=== PATIENT | male | born 1955 | race Caucasian/White ===

== ENCOUNTER 2019-08-02 13:31 | Observation (INO) | payer OTHER, SELFPAY ==
[2019-08-02] VITALS (13 sets, daily range): BP systolic 117–151; BP diastolic 58–85; PULSE 77–90; RESP 4–24; TEMP 36.7–37.1; O2SAT 90–98
--- NOTE | 2019-08-02 | DI.RAD_ITS ---
EXAM: XR PORTABLE CHEST AP INDICATION: aspiration. COMPARISON: No exams were available for comparison TECHNIQUE: 2D digital imaging was performed. FINDINGS: The heart size is within normal limits. Leads overlie the chest. The lungs appear clear. No infilt rate, effusion pulmonary edema is seen. There is no evidence of pneumothorax. IMPRESSION: No acute abnormality. DATA REPOSITORY: RADIATION DOSE DELIVERED:
[2019-08-02 11:56] LABS: *AMPHETAMINES SCREEN URINE Negative (Negative); *BARBITURATES SCREEN URINE Negative (Negative); *BENZODIAZEPINES SCREEN URINE Negative (Negative); Cannabinoids THC POSITIVE (Negative); Cocaine Screen,Urine Negative (Negative); METHADONE URINE SCREEN Negative (Negative); OPIATES URINE SCREEN Negative (Negative)
[2019-08-02 11:58] LABS: Tricyclic Antidepressants POSITIVE (Negative)
[2019-08-02] MEDS: Lactated Ringers 1,000 ML 80 ML IV (12:22)
--- NOTE | 2019-08-02 12:38 | BOWEL_PTH ---
PATIENT: Ventura Sellers LOC: U#:[id number] AGE/SX: 64/M ROOM: 206 RE08/02/[address]: Mary Alice Wadsworth : 1955 BED: A DIS: 08/03/2019 SPEC #: [id number] RECD: 08/02/19 16:50 STATUS: ADAMARIS REQ #: [id number] KATI: 08/02/19 12:[address]: Mary Alice Wadsworth DEPT: Surgical Specimen RECD BY: Christina Muniz ENTERED: 08/02/19 16:51 SP TYPE: Bowel OTHR DR: Sandra Red Tissues: 1 - BIOPSY BOWEL Procedures: GROSS AND MICRO LEVEL 4 Comments: [id number]
[2019-08-02] MEDS: CLINDAMYCIN 600 MG/50 ML BAG 100 MG IVPB ×2 (13:17→20:39)
[2019-08-02] MEDS: Albuterol/Ipratropium 3 ML UPD VIAL UPD ×2 (13:20→14:10)
--- NOTE | 2019-08-02 13:46 | W.COLOREPORT ---
Date of service: 08/02/19 Time of Service: 13:46 Colonoscopy Report Date of procedure: 08/02/19 Pre-op diagnosis general: colon cancer Post-op diagnosis procedure note: other Procedure: ce and polypectomy Surgeon: Mary Alice Wadsworth Anesthesia proc note operative: GETA Pathology: other Complications: Other (laryngospasm ) Disposition: PACU Prep: Miralax/Dulcolax Procedure Description: After informed consent was obtained the patient was taken to the procedure room and placed in a left decubitous position. Monitors were applied and a time out was done. The patients name, date of , procedure, allergies to medications and metal in their body was reviewed. The patient was then sedated. Once sedated and comfortable a rectal exam was done. External exam was normal. Internal exam revealed a normal sphincter tone and no palpable masses. The prostate not palpable. The scope was then introduced and retroflexed. No internal hemorrhoids were identified. The scope was then advanced to the anastomosis w/out difficulty. He has had an extended R-Sandeep. the anastomosis is widely patent and no signs of recurrent tumor. The prep was adequate. There are x2 small polyps. x1 at the anastomosis and one at 60cm/transverse. These were removed w/ a cold biter. The scope was then slowly retracted over 10 minutes back into the rectum. Polyps were removed at the anastomosis, and 60cm/transverse. No diverticular DX. There were x2 polyps at 20cm. Unfortunately, at this point the pt went into severe laryngospasm. The procedure was abandoned for pt safety, and pt was resuscitated. He was briefly intubated for airway control. The patient tolerated the procedure well and there were no immediate complications. Follow up: The patient should follow up in 1 years, b/c there were polyps left behind, unless they develop changes in bowel habits or other new gastrointestinal complaints. Next time we will plane on doing the procedure w/ elective intubation for better airway control.
--- NOTE | 2019-08-02 13:48 | PGE_ITS ---
Date of Service Date of service: 08/02/19 Time of Service: 13:48 Assessment and Plan Assessment and plan (1) Laryngospasm: Status: Acute (2) History of back surgery: Status: Acute (3) Chronic pancreatitis: Status: Acute Subjective Subjective Interval history since last seen: pt was here today for CE. He had CRC in 2000 and R avila. His last CE 2 yrs ago was incomplete. During the procedure today he had a severe episode of layrngospasm. PT does sm varinder 1 ppd. He also vapes/daps Hash/shatter. 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 He does have a hx of opiate abuse, but has been clean from this. He has had previous back sx and testicular Ca as well. During the procedure he had an episode of layrngospasm. Please see [employer] [facility] notes from complete timeline. Pt was intubated briefly for airway control. He r esolved spontaneously after 1-2 mins. Sats did not go lower than 60%'s. He did not lose a pulse. I am concerned that he did aspirate during the procedure. He had a CXR in PCR that was normal. He was given a dose of clinda in PACU. He jeremy not receive steriods. He did receive x2 Neubs. Pt will be kept until at least 5pm. I would like him to spend the night b/c of concern for resp problems. Objective Objective Clinical Data: Abnormal lab results 08/02/19 Range/Units 11:20 Ur Tricyclics Screen Positive A (Negative) Ur THC Screen Positive A (Negative) Vital Signs Temperature 36.8 C 08/02/19 13:23 Pulse 84 08/02/19 13:23 Pulse Rhythm Regular 08/02/19 11:16 Respiratory Rate 18 08/02/19 13:23 Respiratory Depth Deep 08/02/19 11:16 Blood Pressure 129/85 08/02/19 13:23 Pulse Oximetry 93 L 08/02/19 13:23 Respiratory End-tidal CO2 24 08/02/19 13:23 Oxygen Delivery Method Nasal Cannula 08/02/19 13:23 Oxygen Flow Rate 2 08/02/19 13:23 Pain Level 0 08/02/19 13:23 Intake & Output 08/01/19 08/02/19 08/02/19 23:59 11:59 23:59 Weight 79.7 kg Laboratory Results Urine Opiates Screen Negative (Negative) 08/02/19 11:20 Urine Methadone Screen Negative (Negative) 08/02/19 11:20 Ur Barbiturates Screen Negative (Negative) 08/02/19 11:20 Ur Tricyclics Screen Positive (Negative) A 08/02/19 11:20 Ur Amphetamines Screen Negative (Negative) 08/02/19 11:20 U Benzodiazepines Scrn Negative (Negative) 08/02/19 11:20 Urine Cocaine Screen Negative (Negative) 08/02/19 11:20 Ur THC Screen Positive (Negative) A 08/02/19 11:20
--- NOTE | 2019-08-02 15:53 | W.PM.PROGNOT ---
Date of Service Date of service: 08/02/19 Time of Service: 15:53 Assessment and Plan Assessment and plan (1) Low back pain: Status: Acute (2) History of colon cancer: Status: Acute (3) Laryngospasm: Status: Acute Assessment and plan: inc spirom pulm toilet/neubs clinda repeat CXR in am d/w pt findings at CE. Unfortunately, pt is going to need a repeat CE, b/c there are still polyps in his rectum. IN given his hx of CRC, benefits outway risks. However, we should plan on doing it w/ elective intubation for airway control. (4) Adenomatous colon polyp: Status: Acute (5) Smoker unmotivated to quit: Status: Acute (6) COPD (chronic obstructive pulmonary disease): Status: Chronic (7) Chronic diarrhea: Status: Acute (8) S/P right hemicolectomy: Status: Acute Subjective Subjective Interval history since last seen: pt is awake and alert. d/w findings during the CE and his largngospasm. He has not had problems w/ anethesia in the past. He is a 1PPD smoker and daps daily. 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 Currently he has no SOB. He is coughing up clear sputum. no blood. His sats are in 96-97. BP/HR are stable. He is not running a temp. His lungs are CTA b/l. Exam Chest Chest: normal inspection of the chest Resp Effort & Inspection: able to speak in complete sentences Other: diffuse exp wheeze in all [place]. Cardio Rate: regular rate Rhythm: regular rhythm GI Other: no distention. no pain. incision- well healed and no hernias. Skin Other: intact. Neuro General: alert, awake, oriented x3, moves all extremities, normal light touch, pain and propioception, no focal motor deficits and CN's II-XI intact bilaterally Objective Objective Clinical Data: Abnormal lab results 08/02/19 Range/Units 11:20 Ur Tricyclics Screen Positive A (Negative) Ur THC Screen Positive A (Negative) Vital Signs Temperature 37.0 C 08/02/19 14:10 Pulse 80 08/02/19 14:10 Pulse Rhythm Regular 08/02/19 11:16 Respiratory Rate 18 08/02/19 14:10 Respiratory Depth Deep 08/02/19 11:16 Blood Pressure 125/58 L 08/02/19 14:10 Pulse Oximetry 97 08/02/19 14:10 Respiratory End-tidal CO2 08/02/19 14:10 Oxygen Delivery Method Aerosol Mask 08/02/19 14:10 Oxygen Flow Rate 08/02/19 14:10 Pain Level 0 08/02/19 14:10 Intake & Output 08/01/19 08/02/19 08/02/19 23:59 11:59 23:59 Intake Total 600 / 600 Balance 600 / 600 Weight 79.7 kg Intake: IV 600 / 600 Laboratory Results Urine Opiates Screen Negative (Negative) 08/02/19 11:20 Urine Methadone Screen Negative (Negative) 08/02/19 11:20 Ur Barbiturates Screen Negative (Negative) 08/02/19 11:20 Ur Tricyclics Screen Positive (Negative) A 08/02/19 11:20 Ur Amphetamines Screen Negative (Negative) 08/02/19 11:20 U Benzodiazepines Scrn Negative (Negative) 08/02/19 11:20 Urine Cocaine Screen Negative (Negative) 08/02/19 11:20 Ur THC Screen Positive (Negative) A 08/02/19 11:20
[2019-08-02] MEDS: Albuterol 2.5 MG/3 ML INH SOLN VIAL UPD ×5 (15:55→23:58)
[2019-08-02] MEDS: LORazepam 0.5 MG TAB PO ×2 (18:58→22:14)
[2019-08-02] MEDS: Hydroxychloroquine 200 MG TAB PO (20:39)
[2019-08-02] MEDS: Normal Saline Flush 10 ML SYR IVP (20:39)
[2019-08-02] MEDS: Pregabalin 50 MG CAP 150 MG PO (20:39)
[2019-08-02] MEDS: Cyclobenzaprine 10 MG TAB PO (20:39)
[2019-08-02] MEDS: traZODone 100 MG TAB 300 MG PO (22:14)
[2019-08-03] VITALS (7 sets, daily range): BP systolic 126; BP diastolic 72; PULSE 78–91; RESP 1–20; TEMP 36.5; O2SAT 96–99
--- NOTE | 2019-08-03 | DI.RAD_ITS ---
EXAM: XR CHEST 2V PA LATERAL INDICATION: poss aspiraiton. COMPARISON: XR PORTABLE CHEST AP from 08/02/2019 TECHNIQUE: 2D digital imaging was performed. FINDINGS: The heart size is within normal limits. The lungs show mild underlying fibrotic changes. No infiltr ate, effusion or pulmonary edema is seen. There is deformity of the distal clavicle and acromion rel ated to old fractures. Metallic densities are again seen in the left posterior upper chest. IMPRESSION: No acute abnormality. DATA REPOSITORY: RADIATION DOSE DELIVERED:
[2019-08-03] MEDS: Normal Saline Flush 10 ML SYR IVP ×2 (02:50→08:01)
[2019-08-03] MEDS: CLINDAMYCIN 600 MG/50 ML BAG 100 MG IVPB ×2 (02:51→08:03)
[2019-08-03] MEDS: Albuterol 2.5 MG/3 ML INH SOLN VIAL UPD ×3 (02:56→07:49)
[2019-08-03 06:59] LABS: Abs Immature Grans 0.01 k/cumm (0.0-0.09); Absolute Basophil Count 0.02 k/cumm (0.0-0.2); Absolute Eosinophil Count 0.08 k/cumm (0.0-0.7); Absolute Lymphocyte Count 1.01 k/cumm (1.2-3.4); Absolute Monocyte Count 0.69 k/cumm (0.11-0.7); Absolute Neutrophil Count 6.06 k/cumm (1.2-6.7); Basophils % 0.3; HCT 34.3 % (40.0-50.0); HGB 10.9 g/dL (13.5-17.5); Immature Grans % 0.1 %; Lymphocytes % 12.8; Mean Corp. HGB Concentration 31.8 g/dL (32.0-36.0); Mean Corpuscular Hemoglobin 29.9 pg (27.0-33.0); Mean Corpuscular Volume 94.2 fL (80-95); Mean Platelet Volume 10.8 fL (8.0-11.0); Monocytes % 8.8; Platelet Count 229 x1000/uL (130-400); RBC 3.64 m/cumm (4.50-6.00); RBC Distribution Width 15.4 % (11.8-14.1); White Blood Cell Count 7.87 k/cumm (4.4-10.8)
[2019-08-03 07:14] LABS: ALT 14 U/L (16-63); AST 14 U/L (15-37); Alkaline Phosphatase 59 U/L (46-116); Anion Gap 8.1 mmol/L (3-11); BUN 15 mg/dL (7-18); Bilirubin, Total 0.2 mg/dL (0.2-1.0); CO2 22.9 mmol/L (21.0-32.0); CREATININE 1.11 mg/dL (0.70-1.30); Calcium 7.7 mg/dL (8.5-10.1); Chloride 111 mmol/L (98-107); Glucose 122 mg/dL (74-106); Sodium 142 mmol/L (136-145); Total Protein 5.6 g/dL (6.4-8.2)
[2019-08-03] MEDS: DULoxetine 30 MG CAP PO (08:00)
[2019-08-03] MEDS: Hydroxychloroquine 200 MG TAB PO (08:00)
[2019-08-03] MEDS: Cyclobenzaprine 10 MG TAB PO (08:00)
[2019-08-03] MEDS: Pregabalin 50 MG CAP 150 MG PO (08:00)
[2019-08-03] MEDS: LORazepam 0.5 MG TAB PO (10:11)
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
--- NOTE | 2019-08-03 16:58 | PDOC.CMDIS ---
- If Service Date Differs Date of service: 08/03/19 Time of Service: 16:58 LACE Index Scoring Tool - Questions: Length of Stay (in days): 1 Acuity (Admit via E.D.?): No Comorbidities: Chronic Pulmonary Disease, Any Tumor E.D. Visits: 0 - Answers: Total Score: 6 Risk of Readmission: Low Risk Care Management Discharge Reason for Hospitalization: laryngospasm Discharge Plan: [place] will be discharged home with no services. He will follow up with his PCP and surgeon. He will transport via privae vehicle with a friend Patient/Family Education Needs: Discharge and follow up plans, limitations
== END 2019-08-03 12:45 | disposition home or self-care (01) ==
LOC: MS 14:23
PROVIDERS: Admitting Provider Surgery; PCP Internal Medicine; Visit Provider Surgery
PROC: 0DJD8ZZ Inspection of Lower Intestinal Tract, Via Natural or Artificial Opening Endoscopic (ICD-10-PCS; CPT 45378; principal; 2019-08-02 11:30)
DX: Z03.89 Encounter for observation for other suspected diseases and conditions ruled out (principal); Z53.09 Procedure and treatment not carried out because of other contraindication; J95.88 Other intraoperative complications of respiratory system, not elsewhere classified; J38.5 Laryngeal spasm; R09.02 Hypoxemia; Z12.11 Encounter for screening for malignant neoplasm of colon; Z86.010 Personal history of colon polyps; Z98.890 Other specified postprocedural states; Z85.038 Personal history of other malignant neoplasm of large intestine; K52.9 Noninfective gastroenteritis and colitis, unspecified; J44.9 Chronic obstructive pulmonary disease, unspecified; F17.210 Nicotine dependence, cigarettes, uncomplicated; F17.290 Nicotine dependence, other tobacco product, uncomplicated; Z77.120 Contact with and (suspected) exposure to mold (toxic); Z90.49 Acquired absence of other specified parts of digestive tract; G89.29 Other chronic pain; F12.10 Cannabis abuse, uncomplicated; I10 Essential (primary) hypertension; F11.21 Opioid dependence, in remission; M06.9 Rheumatoid arthritis, unspecified; Z23 Encounter for immunization
CPT/HCPCS: 45380; 36415; 80053; 80307; 88305; NC; 71045; 71046; 85025; 94640; G0378; J2001; J2250; J2704; J3010; J7613; J7620

== ENCOUNTER 2022-05-14 01:48 | Outpatient (CLI) | payer OTHER, SELFPAY ==
[2022-05-14] MEDS: Albuterol HFA 18 GM 200 PUFF INH IH (14:22)
[2022-05-14] MEDS: Inhaler, Assist Device 1 EACH MC (14:23)
--- NOTE | 2022-05-19 12:33 | W.PFT ---
Date of service: 05/14/22 Time of Service: 12:57 Pulmonary Function Test Result Requesting Provider Christos Zhang Indications: COPD Interpretation Spirometry: There is mild airflow limitation. There is no significant bronchodilator response. Muscle pressures are normal. Lung Volumes: There is air trapping. Diffusion Capacity: Normal diffusion Airway Pressure: Normal airway resistance. Impression There is mild airflow limitation with airtrapping and a normal diffusion. This may represent chronic bronchitis (COPD) in the correct clinical context. Clinical Correlation therefore is recommended.
== END 2022-05-14 01:49 | disposition home or self-care (01) ==
LOC: RT 01:49
PROVIDERS: PCP Internal Medicine; Visit Provider Internal Medicine Pulmonary Disease
DX: R06.09 Other forms of dyspnea (principal); J44.9 Chronic obstructive pulmonary disease, unspecified; J98.8 Other specified respiratory disorders
CPT/HCPCS: 94060; 94726; 94729

== ENCOUNTER 2023-03-19 15:13 | Emergency (ER) | payer OTHER, SELFPAY ==
[2023-03-19] VITALS (108 sets, daily range): BP systolic 56–156; BP diastolic 22–74; PULSE 57–109; RESP 10–30; TEMP 37.3; O2SAT 81–97
--- NOTE | 2023-03-19 15:15 | RT.EKG_ITS ---
APPROVED REPORT Exam: Resting ECG Reason for Exam: chest pressure Patient Location: E HR:100 bpm ECG Measurements Heart Rate 100 AXIS MI 209 P 1 QRSd 125 QRS 2 QT 366 T 145 QTc 474 Conclusion Sinus tachycardia...rate> 99 Borderline prolonged MI interval...MI >207, V-rate 91-120 Probable LVH with secondary repol abnrm...multiple LVH criteria Inferior infarct, old...Q >35mS, II III aVF
[2023-03-19] MEDS: LORazepam 2 MG/ML VIAL (15:40)
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
[2023-03-19 15:41] LABS: Source Nasal/Nares
[2023-03-19 15:49] LABS: Lactate 0.8 mmol/L (0.6-1.4)
[2023-03-19] MEDS: Normal Saline 500 ML IV ×2 (15:51→16:20)
[2023-03-19 15:52] LABS: Abs Immature Grans 0.06 10^3/uL (0.0-0.06); Absolute Basophil Count 0.05 10^3/uL (0.0-0.2); Absolute Lymphocyte Count 1.31 10^3/uL (1.2-3.4); Basophils % 0.3; Eosinophils % 1.4; HCT 31.8 % (40.0-50.0); HGB 10.4 g/dL (13.5-17.5); Immature Grans % 0.4; Lymphocytes % 8.5; MCH 29.4 pg (27.0-33.0); MCHC 32.7 % (32.0-36.0); MCV 90 fL (80-95); Monocytes % 9.1; Neutrophils % 80.3; Platelet Count 228 10^3/uL (130-400); RBC 3.54 10^6/uL (4.36-5.78); RDW-SD 59.4 fL; WBC 15.41 10^3/uL (4.4-10.8)
[2023-03-19 15:54] LABS: Absolute Eosinophil Count 0.22 10^3/uL (0.0-0.7); Absolute Neutrophil Count 12.37 10^3/uL (1.2-6.7)
[2023-03-19 16:07] LABS: INR 1.3 (0.9-1.1); PTT Activated 27.9 sec (23.6-32.8); Prothrombin Time 12.5 sec (9.1-11.1)
--- NOTE | 2023-03-19 16:15 | DI.CT_ITS ---
Exam(s) CT CHEST/ABD/PEL WO EXAM: CT CHEST/ABD/PEL WO CLINICAL HISTORY: hypotension, ?pneumonia, ?renal obstruction. TECHNIQUE: Imaging Protocol: Axial computed tomography images with coronal and sagittal reformatted images were created and reviewed CONTRAST MATERIAL: Intravenous: Omnipaque 350 Contrast volume:100 ml Oral: no COMPARISON: CR XR CHEST 2V PA LATERAL from 08/03/2019 FINDINGS: CHEST: Tracheobronchial tree: Patent where visualized. Pulmonary parenchyma: Mass right lung apex is somewhat low density. No air-fluid level. Measures ro ughly 4.5 x 3 x 2.5 cm. Spiculated appearance. Suspicious for carcinoma. Pleura: No effusion or pneumothorax. Lymph nodes: Mildly enlarged right paratracheal, pre and subcarinal lymph nodes. Calcification right hilum. Aorta: Thoracic portion non-dilated. Heart: Mildly enlarged left ventricle. Severe coronary artery calcifications. Bones: Unremarkable for age. No lytic or blastic lesions.No compression fractures. Esophagus shows some fluid which could indicate reflux. ABDOMEN and PELVIS: Exam mildly limited by motion. Evaluation limited due to lack oral and IV contrast. Liver: Normal density. No measurable mass. Gallbladder and biliary tract: Limited evaluation due to motion. No calcified stones or wall thicken ing. No biliary dilatation. Pancreas: Limited evaluation due to motion and adjacent non-opacified bowel and vasculature. Normal density, no abnormal calcifications or inflammatory process. Spleen: Normal. Kidneys: Normal size, contour and axis. No radiodense stones or obstructive uropathy. No suspicious m asses seen. Adrenal glands: No masses seen. Aorta: Abdominal portion non-dilated. Moderate atherosclerotic changes. Lymph nodes: Within normal limits. Soft tissues: Unremarkable. Bladder: Unremarkable. Bowel: Mild sigmoid diverticulosis. No evidence of diverticulitis. Anastomosis at mid transverse co florencia. No obstruction . Peritoneal cavity: No ascites. No focal collection or mesenteric inflammatory response. Bones: Degenerative changes. Prior surgery lower lumbar spine. Reproductive organs: TURP defect. IMPRESSION: Chest CT : 4.5 centimeter right upper lobe mass suspicious for carcinoma. Mildly enlarged mediastina l lymph nodes. Abdomen pelvic CT: No acute abnormality. Gallbladder and pancreas not well evaluated. RADIATION DOSE DELIVERED: Total DLP DATA REPOSITORY: All CT scans at this facility are submitted to the National Radiology Data Registry (NRDR) Dose Index Registry (DIR) with the [employer] (ACR). RADIATION OPTIMIZATION: All CT scans at this facility use at least one of these dose optimization te chniques: automated exposure control; mA and/or kV adjustment per patient size (includes targeted exa ms where dose is matched to clinical indication); or iterative reconstruction.
[2023-03-19 16:17] LABS: ALT 25 U/L (16-63); AST 26 U/L (15-37); Albumin 3.5 g/dL (3.4-5.0); Alkaline Phosphatase 88 U/L (46-116); BUN 68 mg/dL (7-18); Bilirubin, Total 0.4 mg/dL (0.2-1.0); COVID-19 PCR Negative (Negative); Calcium 8.6 mg/dL (8.5-10.1); Chloride 100 mmol/L (98-107); Glucose 101 mg/dL (74-106); Magnesium 2.2 mg/dL (1.8-2.4); NT-proBNP 20202 pg/mL (<300); Potassium 4.4 mmol/L (3.5-5.1); Sodium 132 mmol/L (136-145); TSH (W/Ref FT4) 0.34 uIU/mL (0.36-3.74); Total Protein 6.6 g/dL (6.4-8.2); Troponin I 58 ng/L (<or=60)
[2023-03-19 16:18] LABS: CREATININE 4.5 mg/dL (0.70-1.30)
[2023-03-19 16:29] LABS: Procalcitonin 0.6 ng/mL
[2023-03-19 16:34] LABS: FREE T4 1.02 ng/dL (0.76-1.46)
[2023-03-19] MEDS: Lactated Ringers 500 ML IV (16:42)
[2023-03-19] MEDS: PIPERACILLIN/TAZO 2.25 GM in Normal Saline 50 ML IVPB (17:50)
--- NOTE | 2023-03-19 18:11 | DI.VRAD_ITS ---
PROCEDURE INFORMATION: Exam: CT Chest Without Contrast; Diagnostic Exam date and time: 03/19/2023 5:19 PM Age: 68 years old Clinical indication: Other: Hypotension, ? pneumonia, ? renal obstruction TECHNIQUE: Imaging protocol: Diagnostic computed tomography of the chest without contrast. COMPARISON: CR XR CHEST 2V PA LATERAL 08/03/2019 8:44 AM FINDINGS: Lungs: Masslike density in the right upper lobe measuring 4.3 x 2.8 x 2.6 cm. There is an irregular margin. The central portion of the mass is of fluid attenuation. Masses adherent to the apical pleura. Minimal amount of streaky density towards the. This was not observed on the radiographs performed three years ago. Tiny 0.2 cm calcification in the right upper lobe on image [id number]. An other 0.3 cm calcified nodule in the right upper lobe on image [id number]. Pleural spaces: No pleural effusions or pneumothorax. Heart: The heart is normal in size and has a left ventricular configuration. The blood pool is less dense in the muscle consistent with a anemia. There are coronary artery calcifications. No pericardial effusion. Lymph nodes: Right peribronchial 0.9 cm lymph node and 0.7 cm pretracheal lymph node. AP window lymph node is 0.9 cm. There are calcified right hilar lymph nodes. Vasculature: Unremarkable. No aortic aneurysm. Bones/joints: Unremarkable. No acute fracture. Soft tissues: The soft tissues are unremarkable. IMPRESSION: 1. Fluid-filled cavitary lesion in the right upper lobe with punctate calcifications in the right upper lobe and hilar calcifications. Mediastinal adenopathy. The findings are initially worrisome for cancer but past tuberculosis or sarcoidosis are possibilities. 2. Atherosclerotic coronary artery disease. 3. CT evidence of anemia. PROCEDURE INFORMATION: Exam: CT Abdomen And Pelvis Without Contrast Exam date and time: 03/19/2023 5:19 PM Age: 68 years old Clinical indication: Other: Hypotension, ? pneumonia, ? renal obstruction TECHNIQUE: Imaging protocol: Computed tomography of the abdomen and pelvis without contrast. COMPARISON: CR XR CHEST 2V PA LATERAL 08/03/2019 8:44 AM FINDINGS: Liver: Unremarkable. No mass, cysts or dilated bile ducts. Gallbladder and bile ducts: The gallbladder is contracted. There are no intraluminal stones. There is wall thickening but this is likely due to compression. Pancreas: The head of the pancreas is poorly defined. There may be a mass in the head of the pancreas. Spleen: The spleen is normal. Adrenal glands: The adrenal glands are normal. Kidneys and ureters: Normal. No hydronephrosis. Stomach and bowel: The stomach has a moderate amount of fluid and air within it. There is food debris. The wall shows some uniform thickening more along the greater curvature worrisome for gastritis. The duodenal is patulous. Fluid-filled areas adjacent to the latter are likely the duodenal bulb. No definite ulceration. The small bowel distal to this location is unremarkable. Resection of the ascending colon. Ileal to transverse colon anastomosis is unremarkable. Appendix: The appendix is not identified, but there are no inflammatory changes in its expected region. Intraperitoneal space: The fat overlying the liver is of heterogeneous density. No free air. No significant fluid collection. Vasculature: The vasculature demonstrates diffuse moderate atherosclerotic calcification. No abdominal aortic aneurysm.The spine demonstrates severe degenerative changes at multiple levels. Lymph nodes: Unremarkable. No enlarged lymph nodes. Urinary bladder: Unremarkable as visualized. Reproductive: Unremarkable as visualized. Bones/joints: Previous L5 laminectomy. Severe bilateral neural foraminal narrowing L3-S1. Soft tissues: Unremarkable. IMPRESSION: 1. No definite acute process. 2. Possible pancreatic head mass. 3. Asymmetric thickening of the gastric wall could be due to gastritis. 4. Patulous appearing proximal duodenal. 5. Findings suggestive of treated colon cancer with ascending colon resection and small bowel to mid transverse anastomosis. Questionable thickening of the fat overlying the liver. While this may be due to carcinomatosis, there is no ascites. 6. Examination needs to be repeated with oral contrast and intravenous contrast with pancreatic protocol. Dictated and Authenticated by: Ba Malone MD. Ordering:DUYEN Holland MD
[2023-03-19] MEDS: Lactated Ringers 1,000 ML 1000 ML IV (18:20)
[2023-03-19] MEDS: VANCOMYCIN 1,000 MG in Normal Saline 250 ML 166.6666 MG IVPB (18:37)
[2023-03-19] MEDS: Norepinephrine in D5W 8 MG/250 ML BAG 9.375 MG IV (18:51)
[2023-03-19 19:07] LABS: Troponin I 54 ng/L (<or=60)
[2023-03-19 19:17] LABS: Bilirubin Negative (Negative); Blood Negative (Negative); Clarity Clear (Clear); Glucose Negative (Negative); Ketones Negative (Negative); Leukocyte Esterase Negative (Negative); Nitrite Negative (Negative); Specific Gravity 1.025 (1.005-1.025); Urobilinogen 0.2 mg/dL (Up to 0.2)
[2023-03-19 19:26] LABS: Bacteria Rare HPF (Negative); C & S Indicated? No; Casts Negative LPF (Negative); Crystals Negative HPF (Negative); Epithelial Cells Rare HPF (Negative); Mucus Negative (Negative); RBC Negative HPF (0-2); WBC Negative HPF (0-5)
[2023-03-19 19:34] LABS: Anion Gap 11.8 mmol/L (3-11); BUN 61 mg/dL (7-18); CO2 19.2 mmol/L (21.0-32.0); Calcium 7.9 mg/dL (8.5-10.1); Chloride 102 mmol/L (98-107); Estimated GFR 17.52 (mL/min/1.73m2); Glucose 86 mg/dL (74-106); Potassium 4.6 mmol/L (3.5-5.1); Sodium 133 mmol/L (136-145)
[2023-03-19 19:38] LABS: CREATININE 3.6 mg/dL (0.70-1.30)
[2023-03-19] MEDS: Lactated Ringers 1,000 ML 150 ML IV (22:07)
== END 2023-03-19 22:44 ==
PROVIDERS: Emergency Provider Emergency Medicine; PCP Internal Medicine
DX: R07.9 Chest pain, unspecified (principal); R65.21 Severe sepsis with septic shock; I25.10 Atherosclerotic heart disease of native coronary artery without angina pectoris; I10 Essential (primary) hypertension; J44.9 Chronic obstructive pulmonary disease, unspecified; M06.9 Rheumatoid arthritis, unspecified; I95.9 Hypotension, unspecified; Z79.899 Other long term (current) drug therapy; F17.200 Nicotine dependence, unspecified, uncomplicated
CPT/HCPCS: 36415; 71250; 80048; 80053; 84145; 87040; 87635; 93005; 93308; 96361; 96365; 96367; 96375; 99285; 74176; 81003; 81015; 83605; 83735; 83880; 84439; 84443; 84484; 85025; 85610; 85730; 93010; J2060; J2543

== ENCOUNTER 2023-07-29 11:38 | Outpatient (RCR) | payer OTHER, SELFPAY | END 2023-08-04 23:59 | disposition home or self-care (01) | LOC: CR 11:38 | PROVIDERS: PCP Internal Medicine; Visit Provider Internal Medicine Cardiovascular Disease | DX: I50.22 Chronic systolic (congestive) heart failure (principal); I25.810 Atherosclerosis of coronary artery bypass graft(s) without angina pectoris; Z51.89 Encounter for other specified aftercare | CPT/HCPCS: S9472 ==

== ENCOUNTER 2023-08-24 13:00 | Outpatient (RCR) | payer OTHER, SELFPAY ==
--- NOTE | 2023-08-19 12:42 | NUR.NOTE ---
Nursing Note: At approximately 1150 on 08/19/23, this RN answered a call from the pt. Pt. stated that he wouldn't be able to make it to his 1300 cardiac rehab class this afternoon because he had ...soiled myself twice this morning. Not diarrhea though. RN asked pt. if they had been able to get themselves out of bed to the bathroom to get cleaned up. Pt. stated that he had been able to and that he might try to take a shower and then go back to bed and rest again. RN then asked the pt. how he was feeling and pt. stated, I feel a little out of body. RN asked pt. if they were having any dizziness or lightheadedness. Pt. denied at this time. RN then asked pt. if they had been able to drink any fluids to try and stay hydrated and pt. stated that he had been able to. RN encouraged pt. to continue trying to drink fluids. RN also encouraged pt. to call his PCP and just let them know how he was feeling and what was going on. RN also encouraged the pt. to go to urgent care if he started to feel worse, or, if he didn't feel safe to make it to urgent care, to call the ambulance. Pt. verbalized understanding and stated that he would do so. RN encouraged the pt. to call back to Cardiac Rehab with any other concerns/questions. Pt. verbalized that he would do so if necessary. Phone call then ended.
--- NOTE | 2023-08-22 15:15 | NUR.NOTE ---
Nursing Note: At approximately 1320 on 08/22/23, this RN attempted to contact the pt. after the pt. was a no call/no show for his 1300 CR P2 class. RN attempted to call the pt. twice, but was unable to get through to the pt. either time. One of the times that this RN attempted to call the pt., this RN got a message that stated the phone number was no longer in service. CR staff will attempt to verify the pt.'s phone number the next time the pt. calls or comes to class.
== END 2023-09-04 23:59 | disposition home or self-care (01) ==
LOC: CR 13:00
PROVIDERS: PCP Internal Medicine; Visit Provider Internal Medicine Cardiovascular Disease
DX: I25.810 Atherosclerosis of coronary artery bypass graft(s) without angina pectoris (principal); Z51.89 Encounter for other specified aftercare
CPT/HCPCS: S9472